=== PATIENT | female | born 1970 | race Caucasian/White ===

== ENCOUNTER → 2019-02-15 | Outpatient (REF) | payer BC | LOC: M LAB LCGH 13:36 | PROVIDERS: ATTEND Surgery | DX: K80.18 Calculus of gallbladder with other cholecystitis without obstruction (principal); K42.9 Umbilical hernia without obstruction or gangrene ==

== ENCOUNTER → 2019-04-11 | Outpatient (REF) | payer BC ==
[2019-04-18 14:07] LABS: HPV HYBRID CAPTURE II Negative (Negative)
== END ==
LOC: M LAB LCGH 13:48
PROVIDERS: ATTEND Obstetrics & Gynecology Obstetrics
DX: Z12.4 Encounter for screening for malignant neoplasm of cervix (principal); R87.610 Atypical squamous cells of undetermined significance on cytologic smear of cervix (ASC-US)
CPT/HCPCS: 87624; G0123